=== PATIENT | male | born 1985 | race Caucasian/White ===

== ENCOUNTER 2020-08-16 08:37 | Emergency (ER) | payer SELFPAY ==
--- NOTE | 2020-08-16 09:22 | EDM.PDOC ---
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 States he had a bit yesterday but today became uncontrolled and he had to leave the classroom. Did help to walk around outside for a while but he still felt his heart racing heart in his chest which made him come to the ED. No true central chest pain. Mild lightheadedness and dizziness. [place] sense of doom. He reports he has not been sleeping very well for the last several weeks due to having to move here for a job. Had to leave his family at home. He denies any excessive alcohol use and certainly knows drug or street drug use. Using any energy drinks. Plan routine labs to be done chest ECG. Onset: Today, Sudden Onset Date: 08/16/20 Onset Time: 08:30 Duration: Minutes: Location: Reports: Generalized (Sense of heart racing uneasiness with no pressure in his throat or sense of doom. He has good insight into this being anxiety.) Quality: Reports: Other Severity: Moderate (Neurolysed anxiety) Improves with: Reports: None Worsens with: Reports: None Context: Denies: Activity, Exercise, Sick Contact, Trauma Associated Symptoms: Reports: Loss of Appetite, Malaise, Other. 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 None.) - Related Data Allergies Allergy/AdvReac Type Severity Reaction Status Date / Time No Known Allergies Allergy Verified 08/16/20 09:17 Home Meds: Home Meds LORazepam [Ativan] 1 mg PO Q8H #6 tab 08/16/20 [Rx] Valsartan/Hydrochlorothiazide [Valsartan-Hctz 160-12.5 mg Tab] 0 mg PO DAILY 08/16/20 [History] clonazePAM [Clonazepam] 1 mg PO DAILY #10 tablet 08/16/20 [Rx] Social & Family History - Living Situation & Occupation Living situation: Reports: Occupation: Unemployed ED ROS GENERAL - Review of Systems Review Of Systems: See Below Constitutional: Reports: Malaise, Fatigue, Decreased Appetite. Denies: Fever, Chills, Weight Loss HEENT: Reports: Glasses Respiratory: Reports: No Symptoms Cardiovascular: Reports: Blood Pressure Problem ([place] of heart racing intermittently.), Other Endocrine: Reports: Fatigue GI/Abdominal: Reports: Nausea : Reports: No Symptoms Musculoskeletal: Reports: No Symptoms Skin: Reports: No Symptoms Neurological: Reports: Dizziness (Dizziness with today's attack of anxiety), Paresthesia (Mostly left upper extremity), Weakness. Denies: Confusion, Pre- Existing Deficit, Tremors, Trouble Speaking ( gradually resolving.), Difficulty Walking Psychiatric: Reports: Anxiety (Lysed weakness) Hematologic/Lymphatic: Reports: No Symptoms Immunologic: Reports: No Symptoms ED EXAM, GENERAL - Physical Exam Exam: See Below Exam Limited By: No Limitations General Appearance: Alert, WD/WN, Mild Distress, Other (Temperature is 36.6 degrees. Heart rate 101 and sinus. Respiratory is 18 with O2 sats of 99% room air BP elevated 173 110.) Eye Exam: Bilateral Eye: Normal Inspection, PERRL (No blepharal pallor or scleral icterus.) Throat/Mouth: Normal Inspection, Normal Lips, Normal Teeth, Normal Oropharynx Head: Atraumatic, Normocephalic Neck: Normal Inspection, Supple, Non-Tender, Full Range of Motion. No: Carotid Bruit, Lymphadenopathy (L), Lymphadenopathy (R) Respiratory/Chest: No Respiratory Distress, Lungs Clear, Normal Breath Sounds, No Accessory Muscle Use, Chest Non-Tender. No: Rhonchi, Wheezing Cardiovascular: Normal Peripheral Pulses, No Edema, No Gallop (Tachycardia at rest.), No Murmur, No Rub, Tachycardia Peripheral Pulses: 3+: Carotid (L), Carotid (R), Posterior Tibial (L), Posterior Tibial (R), Dorsalis Pedis (L), Dorsalis Pedis (R) GI/Abdominal: Normal Bowel Sounds, Soft, Non-Tender, No Organomegaly, No Abnormal Bruit, No Mass, Pelvis Stable (Male) Exam: No Hernia Back Exam: Normal Inspection, Full Range of Motion. No: CVA Tenderness (L), CVA Tenderness (R) Extremities: Normal Inspection, Normal Range of Motion, Non-Tender, No Pedal Edema Neurological: Alert, Oriented, CN II-XII Intact, Normal Cognition, Normal Gait Psychiatric: Normal Affect, Normal Mood, Anxious (Anxious. He has good insight into the etiology of his complex anxiety symptoms.) Skin Exam: Warm, Dry, Intact, Normal Color, No Rash #1 Interpretation EKG Date: 08/16/20 Time: 09:25 Rhythm: Other (Sinus arrhythmia with rate of 75 to 96/min) Rate (Beats/Min): 85 [place]: Normal P-Wave: Enlarged (Consider left atrial hypertrophy) QRS: Other (Initial poor R wave progression there is a left ventricular hypertrophy pattern) ST-T: Other (Diffuse early repolarization pattern) QT: Normal EKG Interpretation Comments: Abnormal ECG Course - Vital Signs Last Recorded V/S: Last Vital Signs Temp 36.6 C 08/16/20 09:15 Pulse 79 08/16/20 10:00 Resp 16 08/16/20 10:00 BP 147/100 H 08/16/20 10:00 Pulse Ox 96 08/16/20 10:00 - Orders/Labs/Meds Orders: Active Orders 24 hr Category Date Time Status Dextrose 5%-0.9% NaCl [Dextrose 5%-Normal Saline] 1,000 Med 08/16/20 09:30 Active ml IV ASDIRECTED Medication Orders Dextrose/Sodium Chloride (Dextrose 5%-Normal Saline) 1,000 mls @ 500 mls/hr IV ASDIRECTED LANDON Last Admin: 08/16/20 09:42 Dose: 500 mls/hr Documented by: ALPA Labs: Laboratory Tests 08/16/20 08/16/20 Range/Units 09:40 09:40 WBC 10.40 H (4.23-9.07) K/mm3 RBC 5.09 (4.63-6.08) M/mm3 Hgb 15.9 (13.7-17.5) gm/dl Hct 45.3 (40.1-51.0) % MCV 89.0 (79.0-92.2) fl MCH 31.2 (25.7-32.2) pg MCHC 35.1 (32.2-35.5) g/dl RDW Std Deviation 40.3 (35.1-43.9) fL Plt Count 239 (163-337) K/mm3 MPV 9.6 (9.4-12.3) fl Neut % (Auto) 71.4 H (34.0-67.9) % Lymph % (Auto) 21.6 L (21.8-53.1) % [place] % (Auto) 6.5 (5.3-12.2) % Eos % (Auto) 0.1 L (0.8-7.0) Baso % (Auto) 0.1 (0.1-1.2) % Neut # (Auto) 7.42 H (1.78-5.38) K/mm3 Lymph # (Auto) 2.25 (1.32-3.57) K/mm3 [place] # (Auto) 0.68 (0.30-0.82) K/mm3 Eos # (Auto) 0.01 L (0.04-0.54) K/mm3 Baso # (Auto) 0.01 (0.01-0.08) K/mm3 Sodium 138 (136-145) mEq/L Potassium 3.2 L (3.5-5.1) mEq/L Chloride 102 (98-107) mEq/L Carbon Dioxide 21 (21-32) mEq/L Anion Gap 18.2 H (5-15) BUN 13 (7-18) mg/dL Creatinine 1.0 (0.7-1.3) mg/dL Est Cr Clr Drug Dosing 111.01 mL/min Estimated GFR (MDRD) > 60 (>60) mL/min BUN/Creatinine Ratio 13.0 L (14-18) Glucose 124 H (74-106) mg/dL Calcium 9.7 (8.5-10.1) mg/dL Total Bilirubin 0.8 (0.2-1.0) mg/dL AST 32 (15-37) U/L ALT 50 (16-63) U/L Alkaline Phosphatase 59 (46-116) U/L Total Protein 7.5 (6.4-8.2) g/dl Albumin 3.8 (3.4-5.0) g/dl Globulin 3.7 gm/dL Albumin/Globulin Ratio 1.0 (1-2) TSH 3rd Generation 1.561 (0.358-3.74) uIU/mL Meds: Medications Generic Name Dose Route Start Last Admin Trade Name Dave PRN Reason Stop Dose Admin Dextrose/Sodium Chloride 1,000 mls @ 500 mls/hr 08/16/20 09:30 08/16/20 09:42 Dextrose 5%-Normal Saline IV 500 mls/hr ASDIRECTED LANDON Administration Discontinued Medications Generic Name Dose Route Start Last Admin Trade Name Dave PRN Reason Stop Dose Admin Lorazepam 1 mg 08/16/20 09:23 08/16/20 09:42 Ativan IV 08/16/20 09:24 1 mg ONETIME ONE Administration - Radiology Interpretation Free Text/Narrative:: 35-year-old male attends the ED feeling extremely anxious. [place] mildly anxious yesterday but much worse when he was in class this morning for a new job. Came on suddenly with no good reason. [place] his heart racing in his chest with mild dyspnea. No pressure in his throat or neck. Feels a bit better now since he got up and removed himself from the classroom. Plan he will receive IV fluids D5 normal saline at 150 mils per hour. We will give Ativan 1 mg IV. - Re-Assessments/Exams Free Text/Narrative Re-Assessment/Exam: 08/16/20 11:09 labs are now back. They reveal a normal white count at 10.40 with 71.4% neutrophils. Hemoglobin is 15.9 with hematocrit of 45.3. Platelet count is 239,000. Sodium 138 with a potassium slightly low at 3.2. Chloride 102 with a bicarb of 21. Anion gap is elevated at 18.2. BUN is 13 with a creatinine of 1.0 and a GFR greater than 60. Glucose is 124. Calcium is 9.7 total protein is 7.5 with an albumin fraction of 3.8 TSH is normal at 1.56. 08/16/20 11:17 admits he has not had much to eat or drink in the last couple of days and therefore the elevated anion gap. Since has been sleeping very poorly for the last 2 to 3 weeks this may be contributing to his anxiety. I am going to prescribe clonazepam 1 mg at bedtime for the next 10 days. I will prescribe Ativan 1 mg to have on hand in case he develops a another anxiety attack. 8 tablets will be provided. They will only be used if he develops another panic attack or anxiety attack. Departure - Departure Time of Disposition: 11:18 Disposition: Home, Self-Care 01 Reason for Transfer *Q: Other Condition: Fair Clinical Impression: Anxiety attack Insomnia disorder Qualifiers: Insomnia type: unspecified Qualified Code(s): G47.00 - Insomnia, unspecified Prescriptions: LORazepam [Ativan] 1 mg PO Q8H #6 tab clonazePAM [Clonazepam] 1 mg PO DAILY #10 tablet Instructions: Generalized Anxiety Disorder, Adult, Insomnia Referrals: PCP,None [Primary Care Provider] - Forms: ED Department Discharge, ED Return to Work/School Form Additional Instructions: Evaluation in the emergency room today in regards to acute anxiety reaction that occurred while you were in class this morning. You are under good deal of stress with starting a new job with disrupted sleep pattern for the last several weeks. We make chemicals that talk to brain cells called neuro peptides during the night when we are sleeping. Disrupted sleep pattern can be the cause of many psychological illnesses particular a generalized anxiety disorder. You were treated with 30 mg of Ativan while in the ED which brought your symptoms are good control. Lab test revealed that you were a little bit on the dehydrated side and therefore I would encourage her to drink plenty of fluids today such as Gatorade or Powerade to provide rehydration. Suggest using clonazepam 1 mg at bedtime as needed to help sleep over the next 10 to 12 days to ensure a good night sleep. Ativan tablets 1 mg strength to have on hand in case you develop further anxiety episode. It usually will relieve anxiety within about 30 to 40 minutes. Return to the ED if symptoms are not controlled with medication as above. If symptoms persist longer than 3 weeks then alternative medications should be considered as we have other medicines that we can use on a daily basis to prevent anxiety attacks from occurring. Sepsis Event Note (ED) - Focused Exam Vital Signs: Vital Signs Temp Pulse Resp BP Pulse Ox 08/16/20 10:00 79 16 147/100 H 96 08/16/20 09:45 101 H 18 152/100 H 97 08/16/20 09:15 36.6 C 101 H 18 173/110 H 99 - My Orders Last 24 Hours: My Active Orders 08/16/20 09:30 Dextrose 5%-0.9% NaCl [Dextrose 5%-Normal Saline] 1,000 ml IV ASDIRECTED - Assessment/Plan Last 24 Hours: My Active Orders 08/16/20 09:30 Dextrose 5%-0.9% NaCl [Dextrose 5%-Normal Saline] 1,000 ml IV ASDIRECTED
[2020-08-16] MEDS ORDERED: LORazepam 2 MG/ML SDV IV ONE (09:23)
[2020-08-16] MEDS ORDERED: Dextrose 5%-0.9% NaCl 1,000 ML IV SCH (09:30)
== END 2020-08-16 11:43 | disposition home or self-care (01) ==
LOC: JD.ED 08:37
DX: F41.9 Anxiety disorder, unspecified (principal); G47.00 Insomnia, unspecified; Z79.899 Other long term (current) drug therapy
CPT/HCPCS: 36415; 80053; 84443; 85025; 93005; 96374; 99284; J2060; J7042; 93010